=== PATIENT | male | born 1945 | race African-American/Black ===

== ENCOUNTER 2020-04-08 14:44 | Inpatient (IN) | payer MEDICARE, OTHER ==
[~2020-04-08] VITALS: Ht 177.8 cm; Wt 74.8 kg
[2020-04-08 15:22] VITALS: BP 115/62
[2020-04-08 15:30] VITALS: BP 101/54
[2020-04-08 15:51] LABS: BASOPHILS % 1.5 % (0.0-2.0); EOSINOPHILS % 2.2 % (0.0-5.0); HEMATOCRIT. 43.9 % (42.0-52.0); HEMOGLOBIN. 14.6 g/dL (14.0-18.0); LYMPHOCYTES % 22.2 % (20.0-50.0); MEAN CORPUSCULAR HEMOGLOBIN 32.4 pg (28.0-32.0); MEAN CORPUSCULAR VOLUME 97.7 fL (80.0-94.0); MEAN PLATELET VOLUME 9.1 fl (7.4-10.4); MONOCYTES % 14.4 % (2.0-8.0); NEUTROPHILS % 59.7 % (40.0-76.0); PLATELET 135 x1000/uL (130-400); RED BLOOD CELL COUNT 4.49 mill/uL (4.7-6.1); RED CELL DISTRIBUTION WIDTH 18.2 % (11.6-14.6)
[2020-04-08 15:53] LABS: CHLORIDE 109 mEq/L (98-107)
[2020-04-08 16:00] VITALS: BP 124/101
[2020-04-08 16:02] LABS: D-DIMER 1.04 mg/L FEU (<0.50); INR 1.3; PROTHROMBIN TIME 13.6 sec (9.6-11.0)
[2020-04-08] MEDS ORDERED: ACETAMINOPHEN 325MG TABLET PO PRN (16:15)
[2020-04-08] MEDS ORDERED: ZOLPIDEM TARTRATE 5MG TABLET PO PRN (16:15)
[2020-04-08] MEDS ORDERED: ENOXAPARIN 40MG/0.4ML SYR SUBCUT SCH (17:00)
[2020-04-08 17:10] LABS: CLARITY URINE CLEAR (CLEAR); COLOR URINE YELLOW (YELLOW); KETONES URINE NEGATIVE (NEGATIVE); LEUKOCYTE ESTERASE URINE NEGATIVE (NEGATIVE); NITRITE URINE NEGATIVE (NEGATIVE); OCCULT BLOOD URINE NEGATIVE (NEGATIVE); PROTEIN URINE NEGATIVE (NEGATIVE); SPECIFIC GRAVITY URINE 1.011 (1.005-1.030)
[2020-04-08 18:00] VITALS: BP 105/58
[2020-04-08] MEDS: FUROSEMIDE 100MG/10ML VIAL IVP SCH (18:36)
[2020-04-08 20:00] VITALS: BP 114/64
[2020-04-08] MEDS: CARVEDILOL 3.125 MG TABLET PO SCH (21:00)
[2020-04-08] MEDS: NITROGLYCERIN OINT 1GM/INCH UDPKT TD SCH (21:45)
[2020-04-08 22:00] VITALS: BP 97/52
[2020-04-09] VITALS (12 sets, daily range): BP systolic 91–118; BP diastolic 54–95
[2020-04-09] MEDS: NITROGLYCERIN OINT 1GM/INCH UDPKT TD SCH ×3 (06:00→21:00)
[2020-04-09 07:05] LABS: CHLORIDE 108 mEq/L (98-107)
[2020-04-09 07:17] LABS: HEMATOCRIT. 42.7 % (42.0-52.0); HEMOGLOBIN. 14.1 g/dL (14.0-18.0); MEAN CORPUSCULAR HEMOGLOBIN 32.3 pg (28.0-32.0); MEAN PLATELET VOLUME 9.4 fl (7.4-10.4); PLATELET 130 x1000/uL (130-400); RED BLOOD CELL COUNT 4.36 mill/uL (4.7-6.1); RED CELL DISTRIBUTION WIDTH 18.3 % (11.6-14.6)
[2020-04-09] MEDS: FUROSEMIDE 100MG/10ML VIAL IVP SCH (08:43)
[2020-04-09] MEDS: SACUBITRIL/VALSARTAN 24/26 TAB PO SCH ×2 (08:45→21:00)
[2020-04-09] MEDS: CARVEDILOL 3.125 MG TABLET PO SCH ×2 (08:45→21:00)
[2020-04-09] MEDS: POTASSIUM CHLORIDE 20MEQ TABLET SR PO SCH (08:47)
[2020-04-09] MEDS ORDERED: DOBUTAMINE 250MG PREMIX 250 ML IV SCH (10:15)
[2020-04-09] MEDS ORDERED: IPRATROPIUM/ALBUTEROL 0.5-3(2.5)MG/3ML NEB HHN PRN (10:45)
[2020-04-09] MEDS: DOBUTAMINE 250MG PREMIX 250 ML IV SCH ×2 (17:15→21:04)
[2020-04-09] MEDS ORDERED: NITROGLYCERIN OINT 1GM/INCH UDPKT TD SCH (21:00)
[2020-04-09 21:04] LABS: PLATELET ESTIMATE DECREASED
[2020-04-09] MEDS: FUROSEMIDE 40MG/4ML VIAL IVP SCH (21:22)
[2020-04-10] VITALS (21 sets, daily range): BP systolic 90–136; BP diastolic 43–109
[2020-04-10] MEDS: DOBUTAMINE 250MG PREMIX 250 ML IV SCH ×3 (05:16→14:10)
[2020-04-10 07:00] LABS: HEMATOCRIT. 41.7 % (42.0-52.0); MEAN CORPUSCULAR HEMOGLOBIN 32.3 pg (28.0-32.0); MEAN CORPUSCULAR VOLUME 96.3 fL (80.0-94.0); MEAN PLATELET VOLUME 9.1 fl (7.4-10.4); PLATELET 135 x1000/uL (130-400); RED BLOOD CELL COUNT 4.33 mill/uL (4.7-6.1); RED CELL DISTRIBUTION WIDTH 18.1 % (11.6-14.6)
[2020-04-10 07:23] LABS: CHLORIDE 104 mEq/L (98-107)
[2020-04-10] MEDS: FUROSEMIDE 40MG/4ML VIAL IVP SCH ×2 (08:20→21:39)
[2020-04-10] MEDS: ASPIRIN 81MG EC TABLET PO SCH (08:23)
[2020-04-10] MEDS: POTASSIUM CHLORIDE 20MEQ TABLET SR PO SCH (08:24)
[2020-04-10] MEDS: NITROGLYCERIN OINT 1GM/INCH UDPKT TD SCH ×2 (08:26→21:00)
[2020-04-10] MEDS: CARVEDILOL 3.125 MG TABLET PO SCH ×2 (09:00→21:00)
[2020-04-10] MEDS: SACUBITRIL/VALSARTAN 24/26 TAB PO SCH ×2 (09:00→21:00)
[2020-04-10] MEDS ORDERED: IODIXANOL 320MG/ML 100 ML BOTTLE IV ONE (10:26)
[2020-04-10] MEDS ORDERED: LIDOCAINE HCL 1% 20ML VIAL (Pyxis) INJ ONE (10:26)
[2020-04-10] MEDS ORDERED: MIDAZOLAM HCL 2 MG/2 ML VIAL ONE (10:28)
[2020-04-10] MEDS ORDERED: FENTANYL CITRATE/PF 50MCG/ML 2ML VIAL ONE (10:28)
[2020-04-10] MEDS ORDERED: ATROPINE SULFATE 1MG/10ML SYR IV PRN (11:30)
[2020-04-10] MEDS ORDERED: ACETAMINOPHEN 325MG TABLET PO PRN (11:30)
[2020-04-10] MEDS ORDERED: ONDANSETRON HCL 4MG/2ML INJ IV PRN (11:30)
[2020-04-10 16:19] LABS: PLATELET ESTIMATE NORMAL
[2020-04-11] VITALS (8 sets, daily range): BP systolic 95–114; BP diastolic 58–72
[2020-04-11 06:27] LABS: HEMATOCRIT. 42.7 % (42.0-52.0); HEMOGLOBIN. 14.5 g/dL (14.0-18.0); MEAN CORPUSCULAR HEMOGLOBIN 32.7 pg (28.0-32.0); MEAN CORPUSCULAR VOLUME 96.2 fL (80.0-94.0); MEAN PLATELET VOLUME 8.8 fl (7.4-10.4); PLATELET 145 x1000/uL (130-400); RED BLOOD CELL COUNT 4.43 mill/uL (4.7-6.1); RED CELL DISTRIBUTION WIDTH 17.8 % (11.6-14.6)
[2020-04-11 07:04] LABS: CHLORIDE 101 mEq/L (98-107)
[2020-04-11] MEDS: NITROGLYCERIN OINT 1GM/INCH UDPKT TD SCH (09:00)
[2020-04-11] MEDS: CARVEDILOL 3.125 MG TABLET PO SCH (09:00)
[2020-04-11] MEDS: SACUBITRIL/VALSARTAN 24/26 TAB PO SCH (09:00)
[2020-04-11] MEDS: ASPIRIN 81MG EC TABLET PO SCH (10:00)
[2020-04-11] MEDS: FUROSEMIDE 40MG/4ML VIAL IVP SCH (10:00)
[2020-04-11] MEDS: POTASSIUM CHLORIDE 20MEQ TABLET SR PO SCH (10:01)
[2020-04-11] MEDS: DOBUTAMINE 250MG PREMIX 250 ML IV SCH (11:24)
[2020-04-11 22:24] LABS: PLATELET ESTIMATE NORMAL
== END 2020-04-11 12:30 | disposition home or self-care (01) | DRG 286 ==
LOC: 3WST 14:44
PROVIDERS: ADMIT Specialist; ATTEND Specialist
PROC: B2111ZZ Fluoroscopy of Multiple Coronary Arteries using Low Osmolar Contrast (ICD-10-PCS; principal; 2020-04-10)
PROC: 4A023N8 Measurement of Cardiac Sampling and Pressure, Bilateral, Percutaneous Approach (ICD-10-PCS; 2020-04-10)
PROC: B2161ZZ Fluoroscopy of Right and Left Heart using Low Osmolar Contrast (ICD-10-PCS; 2020-04-10)
DX: I11.0 Hypertensive heart disease with heart failure (principal); J96.00 Acute respiratory failure, unspecified whether with hypoxia or hypercapnia; J91.8 Pleural effusion in other conditions classified elsewhere; I50.23 Acute on chronic systolic (congestive) heart failure; I42.9 Cardiomyopathy, unspecified; E78.5 Hyperlipidemia, unspecified; I25.10 Atherosclerotic heart disease of native coronary artery without angina pectoris; I08.0 Rheumatic disorders of both mitral and aortic valves; I50.82 Biventricular heart failure; I27.29 Other secondary pulmonary hypertension; I95.9 Hypotension, unspecified; Z20.828 Contact with and (suspected) exposure to other viral communicable diseases
CPT/HCPCS: 36415; 71045; 76604; 80048; 81003; 83735; 83880; 84484; 85025; 85379; 93005; 93306; 93456; 93970; C1760; C1769; C1887; C1893; J1250; J1644; J1650; J1940; J2250; J3010; J3490; Q9967; U0003-CS